=== PATIENT | female | born 1955 | race African-American/Black ===

== ENCOUNTER 2017-04-23 17:01 | Emergency (ER) | payer OTHER ==
[~2017-04-23] VITALS: Ht 162.6 cm; Wt 76.2 kg
[~2017-04-23 17:01] MED LIST changes: -IBUPROFEN 800800 M1 PO; -LIORESAL 10 MG10 MG PO; -OXYCONTIN20 M1 PO; -TRAZODONE HCL50 MG PO
[2017-04-23] MEDS ORDERED: OXYCONTIN20 M1 PO (17:45)
[2017-04-23] MEDS ORDERED: TRAZODONE HCL50 MG PO (17:47)
[2017-04-23] MEDS ORDERED: IBUPROFEN 800800 M1 PO (17:48)
[2017-04-23 18:40] LABS: ABSOLUTE NEUTROPHILS 1.6 thou/uL (1.4-8.2); BASOPHILS 0.4 % (0.0-2.0); EOSINOPHILS 1.9 % (0.0-3.0); HEMOGLOBIN 13.5 gm/dL (12.0-15.0); LYMPHOCYTES 50.1 % (24.0-44.0); MCHC 33.8 g/dL (28.0-37.0); MCV 91.8 fL (80.0-100.0); MONOCYTES 9.7 % (1.0-8.0); PLATELET COUNT 125 thou/uL (150-400); POLYS 37.9 % (36.0-66.0); RBC 4.35 mil/uL (4.20-5.00); RDW 12.3 % (10.5-14.5); WBC 4.2 thou/uL (4.0-11.0)
[2017-04-23 18:46] LABS: CALCIUM 9.6 mg/dL (8.5-10.1); CREATININE 0.9 mg/dL (0.6-1.0); POTASSIUM 3.5 mmol/L (3.5-5.1)
[2017-04-23] MEDS ORDERED: LIORESAL 10 MG10 MG PO (19:25)
== END 2017-04-23 19:51 | disposition home or self-care (01) ==
LOC: ER 17:01
PROVIDERS: Physician Assistant
DX: R25.2 Cramp and spasm (principal); M79.604 Pain in right leg; M79.605 Pain in left leg; I10 Essential (primary) hypertension; F31.9 Bipolar disorder, unspecified; M81.0 Age-related osteoporosis without current pathological fracture

== ENCOUNTER → 2017-04-23 | Outpatient (CLI) | payer OTHER ==
[~2017-04-23] MED LIST: BENADRYL25 MG PO; CALCIUM + D3 E1 EACH PO; CLONAZEPAM 0.50.5 M1 PO; GLUCOSAMINE HC500 MG PO; HAIR, SKIN & N1 EAC2 PO; IBUPROFEN 800800 M1 PO; LIORESAL 10 MG10 MG PO; NIACIN 100MG T100 M1 PO; NORVASC5 MG PO; OXYCONTIN20 M1 PO; PERCOCET 10-321 EACH PO; PERCOCET 5-3251 EACH PO; TRAZODONE HCL50 MG PO; ZANTAC 150MG T150 MG PO
== END ==
LOC: NUC 13:45
DX: M81.0 Age-related osteoporosis without current pathological fracture (principal); Z12.11 Encounter for screening for malignant neoplasm of colon; E28.8 Other ovarian dysfunction; Z78.0 Asymptomatic menopausal state

== ENCOUNTER 2018-04-10 16:07 | Emergency (ER) | payer OTHER ==
[~2018-04-10] VITALS: Ht 167.6 cm; Wt 69.4 kg
[~2018-04-10 16:07] MED LIST changes: +IBUPROFEN 800800 M1 PO; +LIORESAL 10 MG10 MG PO; +OXYCONTIN20 M1 PO; +TRAZODONE HCL50 MG PO
[2018-04-10] MEDS ORDERED: MOBIC15 MG PO (18:33)
[2018-04-10 18:54] VITALS: BP 150/76
== END 2018-04-10 19:23 | disposition home or self-care (01) ==
LOC: ER 16:07
DX: M25.561 Pain in right knee (principal); M25.511 Pain in right shoulder; M79.671 Pain in right foot; M25.521 Pain in right elbow; F17.210 Nicotine dependence, cigarettes, uncomplicated; F31.9 Bipolar disorder, unspecified; I10 Essential (primary) hypertension; M81.0 Age-related osteoporosis without current pathological fracture; M19.90 Unspecified osteoarthritis, unspecified site; Z96.642 Presence of left artificial hip joint; Z96.651 Presence of right artificial knee joint; W18.39XA Other fall on same level, initial encounter; Y92.89 Other specified places as the place of occurrence of the external cause; Y93.89 Activity, other specified; Y99.8 Other external cause status

== ENCOUNTER 2018-05-28 18:36 | Emergency (ER) | payer OTHER ==
[~2018-05-28] VITALS: Ht 167.6 cm; Wt 72.1 kg
[~2018-05-28 18:36] MED LIST changes: +MOBIC15 MG PO
[2018-05-28] MEDS ORDERED: MOBIC15 MG PO (19:32)
[2018-05-28] MEDS ORDERED: VOLTAREN GEL 1100 G2 TOP (19:32)
[2018-05-28 20:13] VITALS: BP 156/88
== END 2018-05-28 20:13 | disposition home or self-care (01) ==
LOC: ER 18:36
DX: M25.561 Pain in right knee (principal); G89.29 Other chronic pain; M25.461 Effusion, right knee; F17.210 Nicotine dependence, cigarettes, uncomplicated; F31.9 Bipolar disorder, unspecified; I10 Essential (primary) hypertension; M19.90 Unspecified osteoarthritis, unspecified site; M81.0 Age-related osteoporosis without current pathological fracture; Z96.642 Presence of left artificial hip joint; Z88.8 Allergy status to other drugs, medicaments and biological substances

== ENCOUNTER 2018-07-03 11:59 | Emergency (ER) | payer OTHER ==
[~2018-07-03] VITALS: Ht 167.6 cm; Wt 52.2 kg
[~2018-07-03 11:59] MED LIST changes: +VOLTAREN GEL 1100 G2 TOP
[2018-07-03 12:53] LABS: BASOPHILS 0.8 % (0.0-2.0); EOSINOPHILS 2.2 % (0.0-3.0); HEMOGLOBIN 11.2 gm/dL (12.0-15.0); LYMPHOCYTES 45.5 % (24.0-44.0); MCV 84.7 fL (80.0-100.0); MONOCYTES 9.4 % (1.0-8.0); PLATELET COUNT 137 thou/uL (150-400); POLYS 42.1 % (36.0-66.0); RBC 4.02 mil/uL (4.20-5.00); RDW 15.4 % (10.5-14.5); WBC 4.8 thou/uL (4.0-11.0)
[2018-07-03 12:58] VITALS: BP 141/91
[2018-07-03] MEDS ORDERED: ULTRAM 50MG TAB50 MG PO (14:12)
== END 2018-07-03 14:21 | disposition home or self-care (01) ==
LOC: ER 11:59
PROVIDERS: Nurse Practitioner
DX: S40.021A Contusion of right upper arm, initial encounter (principal); F17.210 Nicotine dependence, cigarettes, uncomplicated; M81.0 Age-related osteoporosis without current pathological fracture; I10 Essential (primary) hypertension; M19.90 Unspecified osteoarthritis, unspecified site; F31.9 Bipolar disorder, unspecified; Z88.8 Allergy status to other drugs, medicaments and biological substances; Z96.642 Presence of left artificial hip joint; X58.XXXA Exposure to other specified factors, initial encounter; Y92.89 Other specified places as the place of occurrence of the external cause; Y93.89 Activity, other specified; Y99.8 Other external cause status